=== PATIENT | female | born 1980 | race Caucasian/White ===

== ENCOUNTER 2023-02-10 14:49 | Emergency (ER) | payer MEDICAID ==
[~2023-02-10] VITALS: Ht 167.6 cm; Wt 54.0 kg
[2023-02-10 15:27] VITALS: BP 128/81
[2023-02-10 15:30] VITALS: BP 126/82
[2023-02-10 15:56] LABS: URINE BILIRUBIN - DIPSTICK Negative (NEGATIVE); URINE BLOOD DIPSTICK Large (NEGATIVE); URINE GLUCOSE - DIPSTICK Negative (NEGATIVE); URINE KETONE Negative (NEGATIVE); URINE NITRITE - DIPSTICK Negative (Negative); URINE PH 6.5 (4.5-8.0); URINE PROTEIN - DIPSTICK 30 mg/dL (NEG-TRACE); URINE SPECIFIC GRAVITY 1.025; URINE UROBILINOGEN - DIPSTICK 0.2 E.U./dL (0.2)
[2023-02-10 16:02] LABS: URINE COLOR Yellow; URINE LEUK ESTERASE Moderate (NEGATIVE)
[2023-02-10 16:05] LABS: URINE WBC >100 WBC/hpf (0-5)
[2023-02-10 16:06] LABS: URINE SQUAMOUS EPITHELIAL CELL FEW EPI/hpf (0-FEW)
[2023-02-10] MEDS ORDERED: BACTRIM DS1 TAB PO (17:10)
[2023-02-10] MEDS ORDERED: TOBRADEX OU (17:28)
[2023-02-10 18:23] VITALS: BP 126/82
== END 2023-02-10 18:31 | disposition home or self-care (01) ==
LOC: EDBD 14:49 → ED 14:49
PROVIDERS: Family Medicine
DX: N39.0 Urinary tract infection, site not specified (principal); B95.7 Other staphylococcus as the cause of diseases classified elsewhere; Z87.440 Personal history of urinary (tract) infections